=== PATIENT | female | born 1955 | race Caucasian/White ===

== ENCOUNTER 2017-11-01 08:43 | Day surgery (SDC) | payer OTHER ==
[~2017-11-01] VITALS: Ht 154.9 cm; Wt 81.5 kg
[~2017-11-01 08:43] MED LIST: ONCE DAILY1 EACH PO; PROBIOTIC1 EAC2 PO; TOPROL XL25 MG PO
[2017-11-01 09:19] VITALS: BP 141/78
[2017-11-01] MEDS ORDERED: PERCOCET 5/31 TABLET PO (12:05)
[2017-11-01] MEDS ORDERED: MOTRIN600 MG PO (12:05)
[2017-11-01 13:15] VITALS: BP 134/60
[2017-11-01 14:24] VITALS: BP 120/58
[2017-11-01 15:27] VITALS: BP 119/60
[2017-11-01 16:15] VITALS: BP 135/64
== END 2017-11-01 16:20 | disposition home or self-care (01) ==
LOC: SDC 08:43
PROC: 0FT44ZZ Resection of Gallbladder, Percutaneous Endoscopic Approach (ICD-10-PCS; principal; 2017-11-01)
PROC: BF131ZZ Fluoroscopy of Gallbladder and Bile Ducts using Low Osmolar Contrast (ICD-10-PCS; principal; 2017-11-01)
DX: K81.1 Chronic cholecystitis (principal); I34.1 Nonrheumatic mitral (valve) prolapse; M81.0 Age-related osteoporosis without current pathological fracture; K21.0 Gastro-esophageal reflux disease with esophagitis; F41.9 Anxiety disorder, unspecified; K51.90 Ulcerative colitis, unspecified, without complications; Z88.0 Allergy status to penicillin
CPT/HCPCS: 74300; 88304; 93005; J0131; J1100; J1170; J2250; J2405; J2765; J3010; Q0175; S0020; S0074